=== PATIENT | male | born 1970 | race Caucasian/White ===

== ENCOUNTER 2023-08-21 20:41 | Emergency (ER) | payer BC, SELFPAY ==
[2023-08-21 20:42] VITALS: BP 149/91
--- NOTE | 2023-08-21 21:42 | ED.GENMED ---
History of Present Illness
General
Chief Complaint: Ear Problem
Source: patient
Exam Limitations: none
Time Seen by Provider: 08/21/23 21:19
Travel History
Have you had any contact with someone who has COVID-19?: No
Do you have any symptoms of coronavirus? Fever > 100 degrees, chills, cough, shortness of breath, sore throat, loss of taste or smell, muscle aches, or headache?: No
History of Present Illness
History of Present Illness:
This is a 53 year old male that comes in with c/o right ear pain. States that this morning the ear felt clogged. Then this afternoon he started with increase pain. States that he has had ear infections in the past. Denies any fever, chills, chest
pain, SOB, abd pain, nausea, vomiting, diarrhea, headache, dizziness.
Past History
Past History
ED Past Medical History: HTN and Hypercholesterolemia; Negative IDDM or NIDDM
ED Past Surgical History: Tonsilectomy
Social History
Tobacco: Non-smoker
Alcohol: Occasional
Personal:
Living: with family
Employment: Employed
Family History
Family History: Other (Noncontributory)
Review of Systems
Review of Systems
All Other Systems: ROS reviewed and negative except as documented in HPI and ROS
Constitutional: Reports no symptoms; Denies fever or chills
EENT: Reports other (Right ear pain)
Respiratory: Reports no symptoms; Denies cough or trouble breathing
Cardiac: Reports no symptoms; Denies chest pain
ABD/GI: Reports no symptoms; Denies abdominal pain, nausea, vomiting or diarrhea
: Reports no symptoms
Musculoskeletal: Reports no symptoms
Skin: Reports no symptoms
Neurological: Reports no symptoms; Denies dizzy or headache
Psychiatric: Reports no symptoms
Phy Exam
General Physical Exam
General Presentation: well appearing and no apparent distress
General age: appears stated age
General Skin: warm and dry
General Habitus: normal
General Mental: alert
General Hydration: appears well hydrated
ENT Exam
ENT Exam: pharynx normal, neck supple and TM's abnormal (Right TM bulging and slightly red)
Eye Exam
Eye Exam: EOMI
Cardiovascular Exam
Cardiovascular Exam: regular rate/rhythm and no murmur
Pulmonary Exam
Pulmonary Exam: lungs clear, no respiratory distress, no rales, chest non tender, no crackles, no rhonchi, no wheezing and no cough
Musculoskeletal Exam
Musculoskeletal Exam: full ROM
Skin Exam
Skin Exam: normal color, warm/dry, no rash and no petechia
Psychiatric Exam
Psychiatric Exam: normal mood/affect
Course
Orders/Labs/Results
Orders:
Orders
08/21/23 21:41
Amoxicillin 875 mg/Clav 125 mg [Augmentin 875 mg/125 mg] 1 tablet PO NOW STA
Ibuprofen [Motrin] 600 mg PO NOW STA
Vital Signs
Initial and Last Documented VS:
Initial Vital Signs
Temp Pulse Resp BP Pulse Ox
98.0 F 74 18 149/91 94
08/21/23 20:42 08/21/23 20:42 08/21/23 20:42 08/21/23 20:42 08/21/23 20:42
Last Documented Vital Signs
Temp Pulse Resp BP Pulse Ox
98.0 F 74 18 149/91 94
08/21/23 20:42 08/21/23 20:42 08/21/23 20:42 08/21/23 20:42 08/21/23 20:42
MDM/Problems Addressed
Differential Diagnosis Includes:
Otitis media,
MDM/Problems Addressed:
This is a 53 year old male that comes in with c/o right sided ear pain. States that he has had ear infection in the past due to allergies.
Explained that the TM is bulging and that there is some redness. Will start patient on antibiotics and explained that he can take Ibuprofen 600mg every 6 hours with food for pain. Patient to follow up with the family doctor. Return with any
concerns.
Chronic conditions affecting care:
NA
Acute Exacerbation and/or Progression of Chronic Illness:
Ear infections in the past
*Pulse Oximetry
Patient hypoxic: no
*EKG
Interpreted by ED Provider?: NA
Rate: EKG- N/A
*Head Mixer Interpretation
Rate: Head Mixer- N/A
*Critical Care Note
Total Time (30-74mins, 75-104mins- exclusive of procedures): Not Applicable
ED Attending Note
-
Portions of this chart may have been created with voice recognition software.� Occasional wrong word or��sound alike� substitutions may have occurred due to the inherent limitations of voice recognition software.
Discharge Plan
Departure
Patient Disposition: Home (Routine Discharge)
Date of Disposition: 08/21/23
Time of Disposition: 21:49
Patient with high blood pressure during this ER visit?: Yes
Condition: Good
Covid-19: Not Applicable
Discharge Problem:
Otitis media
Instructions: Ear Infections in Adults (DC), BLOOD PRESSURE
Prescriptions:
New
amoxicillin-pot clavulanate 875-125 mg tablet
1 tab PO BID Qty: 19 0RF
No Action
ibuprofen [Advil Liqui-Gel] 200 MG capsule
400 mg PO PRN PRN (Reason: pain)
aspirin 81 MG tablet,chewable
81 mg PO HS
lovastatin 20 MG tablet
20 mg PO HS
amoxicillin-pot clavulanate 1 TABLET tablet
1 tab PO Q12
albuterol sulfate [ProAir HFA] 8.5 GM HFA aerosol inhaler
2 puff IH [id number] PRN (Reason: cough, wheeze) Qty: 1 0RF
Rx Instructions:
Please dispense with spacer and instruct in it's use. Thanks!
prednisone 50 MG tablet
50 mg PO DAILY Qty: 5 0RF
Activity Restrictions/Additional Instructions:
As discussed, your right ear looks to be bulging and infected. You have been given your first dose of antibiotic here and a prescription has been sent to your Pharmacy. You may take Tylenol 1000mg every 6 hours for pain and/or Ibuprofen 600mg every
6 hours with food for the first day. Please do not continue with the Ibuprofen for long as this will increase your blood pressure. Follow up with the family doctor for recheck. Continue with your allergy medication. IF YOU HAVE INCREASED OR
CHANGING PAIN, OR YOU HAVE ANY OTHER CONCERNS PLEASE RETURN TO THE EMERGENCY ROOM.
Interventions
Interventions:
*Risk Screen - Suicide Last Done: 08/21/23 20:44
*General Assessment Last Done: 08/21/23 20:44
*Neglect/Abuse Screening Last Done: 08/21/23 21:19
ED- Fall Risk Assessment Last Done: 08/21/23 21:19
*ED COVID-19 Vaccine History Last Done: 08/21/23 20:44
Discharge Date and Time
Print Language: [place]AST [place]
[2023-08-21] MEDS: MOTRIN 600 MG PO (21:45)
[2023-08-21] MEDS: AUGMENTIN 875 MG/125 MG 1 TABLET PO (21:46)
== END 2023-08-21 22:04 | disposition home or self-care (01) ==
LOC: EMR 20:41
PROVIDERS: EMERGENCY PHYSICIAN Emergency Medicine; FAMILY PHYSICIAN Internal Medicine
DX: H66.91 Otitis media, unspecified, right ear (principal); I10 Essential (primary) hypertension
CPT/HCPCS: 99283